=== PATIENT | male | born 2000 | race Caucasian/White ===

== ENCOUNTER 2022-02-19 15:06 | Emergency (ER) | payer OTHER, SELFPAY ==
[2022-02-19 15:10] VITALS: BP 129/83
[2022-02-19 15:11] VITALS: BP 129/83; PULSE 118; TEMP 36.2; O2SAT 96; BMI 27.0
[2022-02-19 15:30] VITALS: BP 128/71; PULSE 112; RESP 19
--- NOTE | 2022-02-19 15:38 | ED.NAVMDI ---
HPI - Nausea/Vomiting/Diarrhea General Chief complaint: Nausea/Vomiting Stated complaint: Vomiting Blood/Abdominal Pain Time Seen by Provider: 02/19/22 15:18 History of Present Illness HPI Narrative: This 21-year-old male comes in reporting 3 episodes of vomiting that began today. The 1st 2 episodes were less vigorous than the last 1. The last vomiting episode also had some blood in the vomit. He reports some nausea and has some pressure in his abdomen. He has not had any fevers. He does not use street drugs but did have a alcohol drink last evening. He arrives with normal vital signs except his heart rate is increased in the 110-120 range. He does state that he has some anxiety with regard to this visit. Prior to this he has been in good health. He does report some frequent symptoms heartburn. Related Data Previous Rx's Medication Instructions Recorded pantoprazole 20 mg tablet,delayed 20 mg PO DAILY #30 tabs 02/19/22 release (Protonix) Allergies Allergy/AdvReac Type Severity Reaction Status Date / Time No Known Drug Allergies Allergy Verified 02/19/22 15:15 Review of Systems Status of ROS: Reports: 10 or more systems reviewed and unremarkable except as noted in History and below Narrative: Constitutional: No fevers, no weight gain or loss. Eyes: No discharge. No vision changes. HENT: No congestion, no sore throat, no ear pain. Cardiovascular: No chest pain, no palpitations. Respiratory: No shortness of breath, no wheezes, no cough. Gastrointestinal: Mild Abdominal pain with nausea and vomiting. No diarrhea. Genitourinary: No dysuria, no hematuria. Musculoskeletal: Normal range of motion. Skin: No rashes, no pruritis. Neurological: No dizziness, weakness, sensory change, speech change. Endo/Heme/Allergies: No bruising or bleeding. No polydipsia. Pysch: no suicidality, no anxiety, no insomnia. All other systems reviewed and are negative. PFSH PFSH Social History Smoking Status: Never smoker Do you use any of these nicotine containing products: None Second hand tobacco smoke exposure: No How often do you have a drink containing alcohol: 4 or more times a week How many standard drinks containing alcohol do you have on a typical day: 5 or 6 How often do you have six or more drinks on one occasion: Weekly AUDIT-C Alcohol total score: 9 Non-prescribed substance use: denies use Exam Narrative: Exam Narrative: Constitutional: Well-developed, well-nourished, no acute distress. HEENT: Normocephalic, atraumatic. Neck: Normal range of motion. Nontender. Supple. Heart: Regular. No murmurs. Normal rate. Intact distal pulses. Lungs: Clear to auscultation. No chest discomfort. No wheezes, rhonchi, or rales. Abdomen: Normal bowel sounds. Mild upper epigastric tenderness. No rebound tenderness. Genitalia: Deferred. Back: No midline tenderness. Normal range of motion. Extremities: Normal range of motion. No injury. Skin: Intact. No rash. Warm. No erythema or pallor. Neurologic: No altered sensation. No weakness. Alert and oriented. Psychiatric: No suicidality. No anxiety or depression. No insomnia. Nursing notes and vitals signs are reviewed. Const: Vital Signs, click to edit/add: Vital Signs - 24 hr 02/19/22 15:11 02/19/22 15:10 02/19/22 15:30 Temperature 97.2 F L Pulse Rate [Right Pulse Oximeter] 118 H 112 H Respiratory Rate 19 Blood Pressure [Le ft Upper Arm] 129/83 129/83 128/71 Pulse Oximetry 96 Oxygen Delivery Me thod Room Air Room Air Room Air 02/19/22 16:00 02/19/22 16:30 Temperature Pulse Rate [Right Pulse Oximeter] 97 101 H Respiratory Rate 15 12 Blood Pressure [Le ft Upper Arm] 127/82 126/72 Pulse Oximetry 96 99 Oxygen Delivery Me thod Room Air Room Air Course Vital Signs Vital signs: Initial Vital Signs Blood Pressure 129/83 02/19/22 15:10 Blood Pressure Mean 98 02/19/22 15:10 Blood Pressure Position Supine 02/19/22 15:10 Oxygen Delivery Method 02/19/22 15:10 Vital Signs Blood Pressure 129/83 02/19/22 15:10 Oxygen Delivery Method 02/19/22 15:10 Temperature 97.2 F L 02/19/22 15:11 Pulse Rate 101 H 02/19/22 16:30 Respiratory Rate 12 02/19/22 16:30 Blood Pressure 126/72 02/19/22 16:30 Pulse Oximetry 99 02/19/22 16:30 Oxygen Delivery Method 02/19/22 16:30 MDM - Nausea/Vomiting/Diarrhea MDM Narrative Medical decision making narrative: This patient comes in with 3 episodes of vomiting. The last 1 had some blood in the vomit likely due to esophageal varices. An IV was established where he received a L of normal saline and 4 mg of Zofran. This brought resolution of his symptoms. The patient does state that he drinks more alcohol than he thinks he should. I advised him to decrease or stop using alcohol as this can contribute to these symptoms. I did prescribe Protonix as he does have frequent heartburn symptoms. Lab Data Labs: Lab Results 02/19/22 02/19/22 Range/Units 15:45 15:45 WBC 12.67 H (4.50-11.00) K/uL RBC 5.25 (4.30-5.90) m/uL Hgb 17.0 (13.5-17.5) gm/dL Hct 49.7 (37.0-53.0) % MCV 95 (80-100) fL MCH 32 (26-34) pg MCHC 34 (32-36) gm/dL RDW Coeff of Cheri 12.7 (11.5-15.5) % Plt Count 286 (140-440) K/uL Neut % (Auto) 87.3 H (42.0-72.0) % Lymph % (Auto) 4.5 L (20-44) % Faulkner % (Auto) 6.4 (0.0-11.0) % Eos % (Auto) 0.5 (0.0-7.0) % Baso % (Auto) 0.3 (0.0-3.0) % Neut # (Auto) 11.10 H (1.7-7.0) K/uL Lymph # (Auto) 0.60 L (0.90-2.90) K/uL Faulkner # (Auto) 0.80 (0.00-0.90) K/UL Eos # (Auto) 0.10 (0.00-0.50) K/uL Baso # (Auto) 0.00 (0.00-0.30) K/uL Abs Immat Gran (auto) 0.13 (0.00-0.30) K/uL Sodium 137 (135-149) mmol/L Potassium 4.5 (3.6-5.1) mmol/L Chloride 105 (96-114) mmol/L Carbon Dioxide 21 (20-32) mmol/L BUN 20 (5-24) mg/dL Creatinine 1.1 (0.5-1.5) mg/dL Estimated Creat Clear 121.43 Estimated GFR 97 ml/min Glucose 161 H (60-115) mg/dL Calcium 10.1 (8.4-10.6) mg/dL ECG Data Attestation: I personally reviewed and interpreted this ECG as follows: Interpretation: Sinus tachycardia, rate 112 beats per minute. There are no ST or T-wave abnormalities. Discharge Plan Discharge Clinical Impression: Gastroenteritis Patient Disposition: Home, Self-Care Condition: Stable Instructions: Gastroenteritis (ED) Additional Instructions: Increase diet as tolerated. Use medication as indicated. Follow up with MD or return if worsening. Prescriptions: New pantoprazole [Protonix] 20 mg tablet,delayed release (DR/EC) 20 mg PO DAILY Qty: 30 0RF Follow Up/Referrals: Provider,Not a Local [Primary Care Provider] - Stand Alone Forms: [employer] Info Instructions
[2022-02-19 15:53] LABS: Basophils Percent Auto 0.3 % (0.0-3.0); Eosinophils Percent Auto 0.5 % (0.0-7.0); Hematocrit 49.7 % (37.0-53.0); Immature Granulocytes Abs Auto 0.13 K/uL (0.00-0.30); Lymphocytes Percent Auto 4.5 % (20-44); Mean Corpuscular HGB Conc 34 gm/dL (32-36); Mean Corpuscular Hemoglobin 32 pg (26-34); Mean Corpuscular Volume 95 fL (80-100); Monocytes Percent Auto 6.4 % (0.0-11.0); Neutrophils Percent Auto 87.3 % (42.0-72.0); Platelet Count* 286 K/uL (140-440); RDW Coefficient of Variation % 12.7 % (11.5-15.5); Red Blood Count 5.25 m/uL (4.30-5.90); White Blood Count* 12.67 K/uL (4.50-11.00)
[2022-02-19] MEDS: ONDANSETRON 2 MG/ML inj 4 MG IVP (15:54)
[2022-02-19] MEDS: 0.9 % SODIUM CHLORIDE 1000 ml 1,000 ML IV (15:55)
[2022-02-19 15:57] LABS: Slide Review Reflex No
[2022-02-19 16:00] VITALS: BP 127/82; PULSE 97; RESP 15; O2SAT 96
[2022-02-19 16:05] LABS: Chloride* 105 mmol/L (96-114); Potassium* 4.5 mmol/L (3.6-5.1); Sodium* 137 mmol/L (135-149)
[2022-02-19 16:08] LABS: Carbon Dioxide* 21 mmol/L (20-32); Creatinine* 1.1 mg/dL (0.5-1.5); Est. Creatinine Clearance* 121.43; Estimated Glomerular Filt Rate 97 ml/min
[2022-02-19 16:09] LABS: Blood Urea Nitrogen* 20 mg/dL (5-24); Calcium* 10.1 mg/dL (8.4-10.6); Glucose* 161 mg/dL (60-115)
[2022-02-19 16:30] VITALS: BP 126/72; PULSE 101; RESP 12; O2SAT 99
[2022-02-19 17:00] VITALS: BP 115/75; PULSE 100; RESP 13; O2SAT 99
== END 2022-02-19 17:12 | disposition home or self-care (01) ==
PROVIDERS: Emergency Provider Emergency Medicine Emergency Medical Services
DX: K52.9 Noninfective gastroenteritis and colitis, unspecified (principal)
CPT/HCPCS: 36415; 80048; 85025; 93005; 96374; 99284; 99285; J2405; J7030